=== PATIENT | female | born 1950 | race Caucasian/White ===

== ENCOUNTER 2022-01-10 12:46 | Outpatient (CLI) | payer MEDICARE, OTHER, SELFPAY ==
--- NOTE | 2022-01-10 13:00 | CRLHL7_ITS ---
For Patients: As a result of the Century Cures Act, medical imaging exams and procedure reports are released immediately into your electronic medical record. You may view this report before your referring provider. If you have questions, please contact your health care provider. BILATERAL SCREENING MAMMOGRAM WITH COMPUTER-AIDED DETECTION AND TOMOSYNTHESIS TECHNIQUE: CC and MLO views were obtained. These mammographic images have been obtained using full-field digital technique. These mammographic images were interpreted with the benefit of computer-aided detection. Breast Tomosynthesis was used in this interpretation. COMPARISON FILM: 12/03/20, 11/29/19, 11/05/18. FINDINGS: There are scattered areas of fibroglandular density IMPRESSION: There is no radiographic evidence for malignancy. ASSESSMENT: BI-RADS Category 1: Negative RECOMMENDATION: Routine screening mammogram in 1 year. A lay language report of this examination will be provided to the patient. Tarik Brizuela M.D. Diagnostic Radiologist [email or web address] HUMBERTO/Dictated by: Tarik Brizuela MD @ 01/13/2022 9:43:00 AM (Electronically Signed)
== END 2022-01-10 12:47 | disposition home or self-care (01) ==
LOC: MAMMO 12:50
PROVIDERS: Visit Provider Family Medicine
DX: Z12.31 Encounter for screening mammogram for malignant neoplasm of breast (principal)
CPT/HCPCS: 77063; 77067

== ENCOUNTER 2022-11-12 15:22 | Outpatient (CLI) | payer OTHER, MEDICARE, SELFPAY | END 2022-11-12 15:23 | disposition home or self-care (01) | LOC: AMB 11-24 18:10 | PROVIDERS: PCP Family Medicine; Visit Provider Family Medicine | DX: T14.90XA Injury, unspecified, initial encounter (principal); V49.50XA Passenger injured in collision with unspecified motor vehicles in traffic accident, initial encounter; Y92.410 Unspecified street and highway as the place of occurrence of the external cause | CPT/HCPCS: A0998 ==

== ENCOUNTER 2023-01-19 09:56 | Outpatient (CLI) | payer MEDICARE, OTHER, SELFPAY ==
--- NOTE | 2023-01-19 10:15 | CRLHL7_ITS ---
For Patients: As a result of the Century Cures Act, medical imaging exams and procedure reports are released immediately into your electronic medical record. You may view this report before your referring provider. If you have questions, please contact your health care provider. BILATERAL SCREENING MAMMOGRAM WITH COMPUTER-AIDED DETECTION AND TOMOSYNTHESIS TECHNIQUE: CC and MLO views were obtained. These mammographic images have been obtained using full-field digital technique. These mammographic images were interpreted with the benefit of computer-aided detection. Breast Tomosynthesis was used in this interpretation. COMPARISON FILM: 01/10/22, 12/03/20, 11/29/19. FINDINGS: There are scattered areas of fibroglandular density IMPRESSION: There is no radiographic evidence for malignancy. ASSESSMENT: BI-RADS Category 1: Negative RECOMMENDATION: Routine screening mammogram in 1 year. A lay language report of this examination will be provided to the patient. Tarik Brizuela M.D. Diagnostic Radiologist [email or web address] Transcribed: 2:57 pm DW/Dictated by: Tarik Brizuela MD @ 01/20/2023 9:12:00 AM (Electronically Signed)
== END 2023-01-19 09:57 | disposition home or self-care (01) ==
PROVIDERS: PCP Family Medicine; Visit Provider Family Medicine
DX: Z12.31 Encounter for screening mammogram for malignant neoplasm of breast (principal)
CPT/HCPCS: 77063; 77067

== ENCOUNTER 2024-02-01 14:21 | Outpatient (CLI) | payer MEDICARE, OTHER, SELFPAY ==
--- NOTE | 2024-02-01 14:40 | CRLHL7_ITS ---
For Patients: As a result of the Cures Act, medical imaging exams and procedure reports are released immediately into your electronic medical record. You may view this report before your referring provider. If you have questions, please contact your health care provider. BILATERAL SCREENING MAMMOGRAM WITH COMPUTER-AIDED DETECTION AND TOMOSYNTHESIS TECHNIQUE: CC and MLO views were obtained. These mammographic images have been obtained using full-field digital technique. These mammographic images were interpreted with the benefit of computer-aided detection. Breast Tomosynthesis was used in this interpretation. COMPARISON FILM: 01/19/23, 01/10/22, 12/03/20. FINDINGS: There are scattered areas of fibroglandular density IMPRESSION: There is no radiographic evidence for malignancy. ASSESSMENT: BI-RADS Category 1: Negative RECOMMENDATION: Routine screening mammogram in 1 year. A lay language report of this examination will be provided to the patient. Tarik Brizuela M.D. Diagnostic Radiologist [email or web address] Transcribed: 1:40 p.mTaye allen/Dictated by: Tarik Brizuela MD @ 02/02/2024 10:12:00 AM (Electronically Signed)
== END 2024-02-01 14:22 | disposition home or self-care (01) ==
LOC: MAMMO 14:22
PROVIDERS: PCP Family Medicine; Visit Provider Family Medicine
DX: Z12.31 Encounter for screening mammogram for malignant neoplasm of breast (principal)
CPT/HCPCS: 77063; 77067

== ENCOUNTER 2024-07-16 11:36 | Outpatient (CLI) | payer MEDICARE, OTHER, SELFPAY | END 2024-07-16 11:37 | disposition home or self-care (01) | LOC: NFLDREF 20:41 | PROVIDERS: PCP Family Medicine; Referring Provider Family Medicine | DX: N89.8 Other specified noninflammatory disorders of vagina (principal); B37.31 Acute candidiasis of vulva and vagina; R30.0 Dysuria; R35.0 Frequency of micturition | CPT/HCPCS: 87086 ==

== ENCOUNTER 2025-02-21 12:42 | Outpatient (CLI) | payer MEDICARE, OTHER, SELFPAY ==
--- NOTE | 2025-02-21 13:00 | CRLHL7_ITS ---
For Patients: As a result of the Century Cures Act, medical imaging exams and procedure reports are released immediately into your electronic medical record. You may view this report before your referring provider. If you have questions, please contact your health care provider. INDICATION: BILATERAL SCREEING MAMMOGRAM, ASYMPTOMATIC 74Y/O FEMALE COMPARISON: : 02/01/2024, 01/19/2023, 01/10/2022 TECHNIQUE: Digital mammogram in CC and MLO projections including computer-aided detection (CAD) and tomosynthesis. BREAST COMPOSITION: There are scattered areas of fibroglandular density. FINDINGS: No suspicious findings. ASSESSMENT: BI-RADS 2 Benign RECOMMENDATION: Annual screening mammogram. A lay language report of this examination will be provided to the patient. Dictated by: Tarik Brizuela MD @ 02/22/2025 11:06:40 (Electronically Signed)
== END 2025-02-21 12:43 | disposition home or self-care (01) ==
LOC: MAMMO 12:43
PROVIDERS: PCP Family Medicine; Visit Provider Family Medicine
DX: Z12.31 Encounter for screening mammogram for malignant neoplasm of breast (principal)
CPT/HCPCS: 77063; 77067